=== PATIENT | female | born 1995 | race Asian ===

== ENCOUNTER 2020-08-29 08:44 | Emergency (ER) | payer OTHER ==
[~2020-08-29] VITALS: Ht 162.6 cm; Wt 62.1 kg
[2020-08-29 09:05] VITALS: TEMP 97.1
[2020-08-29 10:35] VITALS: BP 126/86
== END 2020-08-29 10:37 | disposition home or self-care (01) ==
LOC: ED 08:44
DX: J45.901 Unspecified asthma with (acute) exacerbation (principal)
CPT/HCPCS: 96372; 99282; J1020

== ENCOUNTER 2021-01-13 06:47 | Emergency (ER) | payer OTHER ==
[~2021-01-13] VITALS: Ht 162.6 cm; Wt 65.8 kg
[2021-01-13 06:53] VITALS: TEMP 99
[2021-01-13 09:12] VITALS: BP 121/85
== END 2021-01-13 09:12 | disposition still patient (30) ==
LOC: ED 06:47
DX: S69.81XA Other specified injuries of right wrist, hand and finger(s), initial encounter (principal); X50.3XXA Overexertion from repetitive movements, initial encounter; Y92.89 Other specified places as the place of occurrence of the external cause
CPT/HCPCS: 99283

== ENCOUNTER 2021-01-18 16:53 | Emergency (ER) | payer OTHER ==
[~2021-01-18] VITALS: Ht 162.6 cm; Wt 65.8 kg
[2021-01-18 16:57] VITALS: BP 129/78; TEMP 98
== END 2021-01-18 19:02 | disposition home or self-care (01) ==
LOC: ED 16:53
DX: S00.83XA Contusion of other part of head, initial encounter (principal); S09.8XXA Other specified injuries of head, initial encounter; S01.511A Laceration without foreign body of lip, initial encounter; W50.0XXA Accidental hit or strike by another person, initial encounter; Y93.64 Activity, baseball; Y92.89 Other specified places as the place of occurrence of the external cause
CPT/HCPCS: 90715; 99282

== ENCOUNTER 2021-01-28 22:22 | Emergency (ER) | payer OTHER ==
[~2021-01-28] VITALS: Ht 162.6 cm; Wt 65.8 kg
[2021-01-28 22:25] VITALS: TEMP 98.5
[2021-01-29 00:09] VITALS: BP 125/81
== END 2021-01-29 00:09 | disposition home or self-care (01) ==
LOC: ED 22:22
DX: F41.0 Panic disorder [episodic paroxysmal anxiety] (principal); K21.9 Gastro-esophageal reflux disease without esophagitis
CPT/HCPCS: 36415; 96374; 96375; 99284; J2060; J2930